=== PATIENT | male | born 1995 | race Hispanic/Latino ===

== ENCOUNTER 2017-12-21 19:04 | Emergency (ER) | payer OTHER | END 2017-12-21 20:38 | disposition home or self-care (01) | LOC: M ED 19:04 | DX: S66.412A Strain of intrinsic muscle, fascia and tendon of left thumb at wrist and hand level, initial encounter (principal); W00.0XXA Fall on same level due to ice and snow, initial encounter; Y92.59 Other trade areas as the place of occurrence of the external cause; Y99.0 Civilian activity done for income or pay; F17.210 Nicotine dependence, cigarettes, uncomplicated | CPT/HCPCS: 73140 ==

== ENCOUNTER → 2018-03-19 | Outpatient (CLI) | payer OTHER | LOC: M PLARAD 10:06 | DX: R20.2 Paresthesia of skin (principal) | CPT/HCPCS: 70553 ==

== ENCOUNTER → 2018-05-14 | Outpatient (CLI) | payer OTHER | LOC: M RAD 08:40 | DX: M54.5 Low back pain (principal) | CPT/HCPCS: 78320 ==